=== PATIENT | male | born 1965 | race Caucasian/White ===

== ENCOUNTER 2023-03-09 08:22 | Outpatient (AMB) | payer BC, SELFPAY ==
--- NOTE | 2023-03-09 08:25 | MHC.OFFVIS ---
Intake Vital Signs 03/09/23 08:27 Height 5 ft 10 in Weight 237 lb BMI 34.0 BP 122/84 Blood Pressure Location Rt brachial Position Sitting Pulse 91 Pulse Source Pulse Oximeter Pulse Oximetry (%) 97 Oxygen Delivery Method Room Air Intake Visit Reasons: ENP-F/u on CPAP 90 day requirement per Ins-Conf Intake Note: Patient presents for follow up. Allergies Penicillins Allergy (Unknown, Verified 03/09/23 08:30) Unknown Sulfa (Sulfonamide Antibiotics) Allergy (Unknown, Verified 03/09/23 08:30) Unknown HPI HPI Comments History of Present Illness Details 57 y/o male patient presents for new in-person visit to manage sleep apnea. Pt reports he had a home sleep study in Dec, 2022 and was diagnosed with NAVEED. The home sleep study result was significant for a mild degree of sleep apnea. The AHI was 7/hr and oxygen pam was 85%. Pt started APAP at [id number]. The CPAP compliance and therapy response (02/07/23-03/08/23) reviewed. The usage days 77% and the average usage hours 7 hrs. The max pressure was 15.2 and the residual AHI was 0.9/hr. Pt's home care company is [facility]. Pt states that he changed the mask size to extra large and it is much comfortable, and his skin on nose bridge is healing. He can have rested sleep, no frequent wakes up, less urination at night and feels much refreshed in the morning. His sleep quality has improved a lot, he can sleep 7 hrs average. Daytime sleepiness has resolved, does not need take afternoon nap anymore. [facility] Family History (Updated 03/09/23 @ 08:32 by GLENN Mueller) Father Heart disease COPD (chronic obstructive pulmonary disease) Diabetes Brother Diabetes Social History (Updated 03/09/23 @ 08:32 by GLENN Mueller) Alcohol intake: never Patient Tobacco Use Status: Never used Tobacco Review of Systems Const All systems reviewed & are unremarkable except as noted in HPI and below Physical Exam Vital Signs: Last Vital Signs Pulse 91 03/09/23 08:27 BP 122/84 03/09/23 08:27 Pulse Ox 97 03/09/23 08:27 Oxygen Delivery Method Room Air 03/09/23 08:27 BMI result Body Mass Index 34.0 Const General: cooperative Nutritional Appearance: obese Orientation/consciousness: patient oriented x3 Neck Neck: Yes full ROM and Yes supple Resp Effort & Inspection: normal respiratory effort and able to speak in complete sentences Neuro General: patient oriented x3, gait normal and moves all extremities Cranial nerves: Yes CN's II-XII intact bilaterally Cognition (Neuro): normal cognition Gait exam (Neuro): Normal gait present Motor exam (neuro): 5/5 motor strength present throughout, Pronator motor function not present and no tremor noted Psych Appearance: grossly normal Mental Status: mental status grossly normal Speech and movement: Normal speech and movement present Affect: normal affect Attitude: cooperative Assessment & Plan Assessment & Plan (1) NAVEED on CPAP: Code(s): G47.33 - Obstructive sleep apnea (adult) (pediatric) Plan Continue to use APAP [id number] as patient experiences good clinical effects, improved sleep quality and daytime sleepiness has resolved. Stressed compliance, use CPAP nightly and more than 4 hrs. Continue to practice good sleep hygiene and wt reduction advised. Coding Level of Care Code New Pt Level 3 (26314) Diagnoses NAVEED on CPAP G47.33
[2023-03-09 08:27] VITALS: BP 122/84; PULSE 91; O2SAT 97; BMI 34.0
== END 2023-03-09 08:53 | disposition home or self-care (01) ==
PROVIDERS: PCP Internal Medicine; Visit Provider Nurse Practitioner Family
DX: G47.33 Obstructive sleep apnea (adult) (pediatric) (principal)
CPT/HCPCS: 99203

== ENCOUNTER → 2023-03-09 08:22 | Outpatient (BNVA) | payer BC, SELFPAY | PROVIDERS: PCP Internal Medicine; Visit Provider Nurse Practitioner Family ==

== ENCOUNTER 2024-03-09 08:45 | Outpatient (AMB) | payer BC, SELFPAY ==
--- OUTSIDE RECORDS SUMMARY | 2024-03-09 08:50 | XMS_ITS | Continuity of Care Document ---
Author Organization [facility] Address [address] [place] [address] [facility] Name Relationship Address Phone SUKHI GARCIA spouse Unknown Unavailable DEITER, YANI spouse Unknown Unavailable SUKHI CLEMENTS domestic partner Unknown Unavailabl e DEITER, RAJWINDERA Personal Relationship Unknown Crystal vailable DEITER, RAUL Personal Relationship Unknown Unava ilable Care Team Providers Care Isobutylene Operator Chief Name Role Phone Smith Crowder MD Primary Care Physician [phone] Encounter [facility] Date(s): 02/02/24 - 03/03/24 [facility] [address] [place] [address] Encounter Type: Triage Allergies, Adverse Reactions, Alerts Substance Criticality Severity Reaction Reaction Severity Status penicillin Active sulfa drugs Active Immunizations Given and Recorded Vaccine Date Status Refusal Reason tetanus/diphtheria/pertussis, acel(Tdap) 1 09/09/23 Given tetanus/diphtheria/pertussis, acel(Tdap) 2 01/21/12 Given SARS-CoV-2 (COVID-19) mRNA-1273 vaccine 08/21/21 R ecorded SARS-CoV-2 (COVID-19) mRNA BNT-162b2 vac 04/08/21 Recorded SARS-CoV-2 (COVID-19) mRNA BNT-162b2 vac 10/09/20 Recorded SARS-CoV-2 (COVID-19) mRNA BNT-162b2 vac 09/18/20 Recorded tetanus-diphtheria toxoids (Td) 11/10/18 Given pneumococcal 23-valent vaccine 06/28/16 Given influenza virus vaccine, inactivated 3 01/08/13 Gi daija FluLaval (oldterm) 02/10/11 Given 1Result Comment: [facility]:[id number] 2Admin Note: Boostrix 3Result Comment: [01/23/2013[place] Medic[place] CPAP Machine See Instructions, # 1 each, Refills 0, Tot. Refills 0, Maintenance, AutoCPAP 7- 20 cm H20, use Dailywhen sleeping DX: G47.33 NAVEED, 02/02/23 4:24:00 PM EST, Supply Start Date: 02/02/23 Status: Ordered Quantity: 1.0 Unit: each Repeat number: 1 CPAP Equipment See Instructions, # 1 each, Refills 11, Tot. Refills 11, Maintenance, Mask , Filters, Water Chamber, Tubing , Head/ Chin Strap , Heated Humidifer DX: G47.33 NAVEED, 02/02/23 4:25:00 PM EST, Supply Start Date: 02/02/23 Status: Ordered Quantity: 1.0 Unit: each Repeat number: 12 sildenafil 100 mg oral tablet 1 tablet, By Mouth, Daily, PRN NEEDED FOR ERECTILE DYSFUNCTION, TABLET CAN BE SPLIT IN HALF, TAKE 1 HOUR BEFORE SEXUAL ACTIVITY., # 5 tablet, 5 Refills, Maintenance, 12/07/23 2:39:00 PM EDT, [facility], 177.5, cm, 09/09/23 7:59:00 EDT, Height Start Date: 12/07/23 Status: Ordered Quantity: 5.0 Unit: tablet Repeat number: 1 Ventolin HFA 108 mcg/inh inhalation aerosol with adapter 2 puffs, Inhalation, Every 4 hours, NAME BRAND ONLY, # 1 each, 11 Refills, Maintenance, 09/01/22 8:00:00 AM EDT, [facility], 177.5, cm, 09/01/22 7:54:00 EDT, Height Start Date: 09/01/22 Stop Date: 08/27/23 Status: Ordered Quantity: 1.0 Unit: each Repeat number: 12 Problem List Condition Confirmation Course Effective Dates Status H ealth Status Informant Allergic rhinitis Confirmed Active COVID-19 virus infection (May 2020 and s/p monoclonal Ab) Confirmed Active FH: Diabetes mellitus Confirmed Active Asthma, intermittent 1 Confirmed Active Obese class I Confirmed Active Tubulovillous adenoma of colon Confirmed 2014 Active Serrated polyp of colon 2 Confirmed 11/20/17 Active Tubular adenoma of colon Confirmed 2014 Active 1mild intermittent 2Repeat colonoscopy in 2020 Social History Social History Type Response Smoking Status Never smoker entered on: 06/23/15 Sex Sex Representation Male (finding) Patient Care team information Care Team Personnel Name: Srinivas Gandhi RN Position: [facility] RN Member Role: Primary Care Nurse Name: Smith Crowder MD Position: [facility] Physician - Primary Care Member Role: PCP Address: [address] [place] [address]- Telecom: Care Team Related Persons Name: SUKHI GARCIA Insurance Providers Guarantor name: JESSICA GARCIA Health Plan Information #: 1 Payer: [employer] Member Number: NA Policy Number: NA Group Number: NA
--- OUTSIDE RECORDS SUMMARY | 2024-03-09 08:50 | XMS_ITS | Continuity of Care Document ---
Author Organization [facility] Address [address] [place] [address]- Care Team Providers Care Microchip Specialist Name Role Phone Smith Crowder MD Primary Care Physician [phone] Encounter [facility] Date(s): 02/14/24 - 02/14/[address] [id number] Discharge Disposition: A-D/C Home Attending Physician: Juice Raya MD Admitting Physician: Juice Raya MD Referring Physician: Juice Raya MD Encounter Type: Disch Daystay Allergies, Adverse Reactions, Alerts Substance Criticality Severity [...] daija FluLaval (oldterm) 02/10/11 Given 1Result Comment: [facility]:[id number] 2Admin Note: Boostrix 3Result Comment: [01/23/2013] administerd @ [facility] [place], [place] Medications CPAP Machine See Instructions, # [...] Active 1mild intermittent 2Repeat colonoscopy in 2020 Vital Signs Most recent to oldest [Reference Range]: 1 2 3 Height 178 cm (02/14/24 9:47 AM) Weight 102.5 kg (02/14/24 9:47 AM) Oxygen Saturation [94-100 %] 97 % (02/14/24 12:21 PM) 96 % (02/14/24 12:13 PM) 96 % (02/14/24 11:55 AM) Pulse Rate [55-90 bpm] 74 bpm (02/14/24 11:55 AM) 74 bpm (02/14/24 9:47 AM) Body Mass Index [18.5-24.99 kg/m2] 32.35 kg/m2 *>HHI* (02/14/24 9:47 AM) Blood Pressure [90-138/55-84 mm Hg] 114/72mm Hg (02/14/24 12:22 PM) 101/71mm Hg (02/14/24 12:12 PM) 111/99mm Hg (02/14/24 11:55 AM) Respiratory Rate [16-30 br/min] 20 br/min (02/14/24 12:21 PM) 14 br/min *L* (02/14/24 12:13 PM) 19 br/min (02/14/24 11:55 AM) Temperature [96.8-100.4 DegF] 98.0 DegF (02/14/24 9:47 AM) Mode of Delivery (Oxygen) Room air (02/14/24 11:55 AM) Room air (02/14/24 9:47 AM) Blood pressure sites Arm, left (02/14/24 11:55 AM) Arm, left (02/14/24 9:47 AM) Temperature Route Temporal (02/14/24 9:47 AM) Dry Weight 102.5 kg (02/14/24 9:47 AM) Weight Obtained Via Standing scale (02/14/24 9:47 AM) Dry Weight Obtained Via Standing scale (02/14/24 9:47 AM) Social History Social History Type Response Smoking Status Never smoker entered on: 06/23/15 Sex Sex Representation Male (finding) Patient Care team information Care Team Personnel Name: Srinivas Gandhi RN Position: [facility] RN Member Role: Primary Care Nurse Name: Smith Crowder MD Position: [facility] Physician - Primary Care Member Role: PCP Address: [address] [place] [id number] Telecom: Care Team Related Persons Name: SUKHI GARCIA Insurance Providers Guarantor name: JESSICA GARCIA Health Plan Information #: 1 Payer: [employer] Member Number: [id number] Policy Number: NA Group Number: [id number] Health Plan Information #: 2 Payer: [employer] Member Number: [id number] Policy Number: NA Group Number: NA
--- OUTSIDE RECORDS SUMMARY | 2024-03-09 08:50 | XMS_ITS | Continuity of Care Document ---
Author Organization [facility] Address [address] [place] [address]- Care Team Providers Care Hose Stripper Name Role Phone Vel BETANCUR, Smith Primary Care Physician [place] [facility] Date(s): 01/18/24 - 02/17/24 [facility] [address], [place] [address] Encounter Type: Triage Allergies, Adverse Reactions, Alerts [...] daija FluLaval (oldterm) 02/10/11 Given 1Result Comment: [facility]:[id number] 2Admin Note: Boostrix 3Result Comment: [01/23/2013] [place] Medications CPAP Machine See Instructions, # [...] Team Personnel Name: Srinivas Gandhi RN Position: [facility] RN Member Role: Primary Care Nurse Name: Smith Crowder MD Position: [facility] Physician - Primary Care Member Role: PCP Address: [address] [place] [address] Telecom: Care Team Related Persons Name: SUKHI GARCIA Insurance Providers Guarantor name: JESSICA GARCIA Health Plan Information #: 1 Payer: [employer] Member Number: NA Policy Number: NA Group Number: NA
[2024-03-09 08:59] VITALS: BP 116/82; PULSE 74; O2SAT 97; BMI 33.6
--- NOTE | 2024-03-09 08:59 | MHC.OFFVIS ---
Vital Signs 03/09/24 08:59 Height 5 ft 10 in Weight 234 lb 8 oz BMI 33.6 BP 116/82 Blood Pressure Location Lt brachial Position Sitting Pulse 74 Pulse Source Pulse Oximeter Pulse Oximetry (%) 97 Oxygen Delivery Method Room Air Intake Visit Reasons: 1 yr f/u NAVEED Intake Note: Few occasion were he woke up and felt like he was not breathing. HE was wearing his CPAP when encounter occurred. Tobacco Wrapping Machine Tender Required: No Accompanied by: Self / Same As Patient Allergies Penicillins Allergy (Unknown, Verified 03/09/24 09:10) Unknown Sulfa (Sulfonamide Antibiotics) Allergy (Unknown, Verified 03/09/24 09:10) Unknown Medication List - Last Reconciled 03/11/24 by JONA Jaeger No Known Home Meds Do you need a note to return to daycare/school/sports/work: No HPI Comments Details: 58 y/o male patient presents for f/u of mild NAVEED w/ Dec 2022 HST showing AHI was 7/hr and oxygen pam was 85% w/ SPO2 < 88% x's 2 min. Since his last visit here, pt reports he was using his APAP pretty consistently, with good effect. However in December he had 2 nights (not sure which specific dates, but a Tuesday and then the following Tuesday) where he woke up with a sensation that he was not breathing. He states he was consciously trying to make himself breathe and when he sat up, he could breathe. does not recall dreaming, and not a/w headache/chest pain. He states it felt like the episode lasted forever , however likely it was just 5-10 seconds. Review of his December 2023 PAP complaince report di not show any episodes of marked increased residual AHIs or episodes of central sleep apnea. He denies alcohol/marijuana intake before these episodes- does not use alcohol or marijuana or illicit drugs. He did try to see if there was something different in his day/evening prior to these episodes, but cannot think of anything. He denies h/o sleep paralysis. Has a slight case of asthma - has not needed his inhalers in > 1 yr. No usual chest pain, or SOB on exertion, leg swelling. Generally breathes better when he sleeps on his side. Since the above incident, he has not been using his CPAP as well, was a bit anxious about sleeping, however has started using his device again. He does also wonder if an alternate mask to his nasal mask might be more comfortable. Prior to the HST, his has told him that he stops breathing in his sleep and has loud snoring. [facility] Compliance Report Usage 02/08/2024 - 03/08/2024 Usage days 14/30 days (47%) >= 4 hours 7 days (23%) < 4 hours 7 days (23%) Average usage (days used) 4 hours 43 minutes AirSense 10 AutoSet Serial number [id number] Mode AutoSet Min Pressure 7 cmH2O Max Pressure 20 cmH2O EPR Fulltime EPR level 2 Response Standard Therapy Pressure - cmH2O Median: 10.1 95th percentile: 14.3 Maximum: 15.7 Leaks - L/min Median: 1.6 95th percentile: 10.5 Maximum: 16.0 Events per hour AI: 0.3 HI: 0.1 AHI: 0.4 PFSH Family History Father Heart disease COPD (chronic obstructive pulmonary disease) Diabetes Brother Diabetes Social History Alcohol intake: never Patient Tobacco Use Status: Never used Tobacco Physical Exam Vital Signs: Last Vital Signs Pulse 74 03/09/24 08:59 BP 116/82 03/09/24 08:59 Pulse Ox 97 03/09/24 08:59 Oxygen Delivery Method Room Air 03/09/24 08:59 BMI result Body Mass Index 33.6 Const General: no acute distress Orientation/consciousness: patient oriented x3 Neuro General: patient oriented x3 Psych Mental Status: mental status grossly normal Speech and movement: Clear speech present Attitude: cooperative Assessment & Plan Assessment & Plan (1) NAVEED on CPAP: Code(s): G47.33 - Obstructive sleep apnea (adult) (pediatric) Category: Medical (2) Apnea: Code(s): R06.81 - Apnea, not elsewhere classified Category: Medical (3) Mild obstructive sleep apnea: Code(s): G47.33 - Obstructive sleep apnea (adult) (pediatric) Category: Medical Plan Reviewed results of 2022 home sleep study report, results c/w mild obstructive sleep apnea w/o central sleep apnea or significant nocturnal hypoxemia. Continue APAP 7-20 cmH2O nightly > 4 hours, as pt does have overall good clinical effect from use. However, adjusted EPR from 2 to 3 via orat.io portal- in hopes this reduces risk for recurrence of waking up w/ sensation of apnea. Will also request new mask fitting. Orders for above written today. If pt has recurrence of waking w/ apnea, consider f/u in-lab PSG and/or pulmonary consult. Clean CPAP machine and supplies routinely. Change CPAP supplies routinely. Use distilled water in PAP water reservoir. Pt to contact us or respiratory company with any questions or concerns. Pt to follow-up in 6 months or sooner prn. Coding Level of Care Code Est Pt Level 3 (28840) Diagnoses NAVEED on CPAP G47.33 Apnea R06.81 Mild obstructive sleep apnea G47.33
== END 2024-03-09 10:04 | disposition home or self-care (01) ==
PROVIDERS: Absent Provider Physician Assistant Medical; PCP Internal Medicine; Visit Provider Nurse Practitioner Family
DX: G47.33 Obstructive sleep apnea (adult) (pediatric) (principal)
CPT/HCPCS: 99213

== ENCOUNTER 2024-09-04 08:18 | Outpatient (AMB) | payer BC, SELFPAY ==
--- OUTSIDE RECORDS SUMMARY | 2024-09-04 08:29 | XMS_ITS | Clinical Summary ---
Author Organization [facility] [employer] [facility] Address [address] [place] [address] Care Team Providers Care Lang Interpreter Name Role Phone Pcp, No Primary Care Provider [phone] Social History Tobacco Use Types Packs/Day Years Used Date Smoking Tobacco: Never Assessed Sex and Gender Information Value Date Recorded Sex Assigned at Not on file Legal Sex Male 10:35 AM EDT Gender Identity Not on file Sexual Orientation Not on file Plan of Treatment Health Maintenance Due Date Last Done Comments Colorectal Cancer: COLONOSCO PY Screening every 10 yrs (or Modifier) 1964 Depression: Screening Annual ly using PHQ-2/9 in Adults 18 yrs or above (or HM Modifier)([facility]) 1982 Hepatitis C Virus Infection in Adolescents and Adults: Screening (or Modifier) ([facility]) 1982 [facility] Screening Reminder: Dennise christie for all adults ([facility]) 1982 Tobacco Smoking Cessation: i n Adults excluding Women: Behavioral and Pharmacotherapy Interventions ([facility]) 1982 DTaP/Tdap/Td Vaccines ([facility]) (1 - Tdap) 06/09/1983 Colorectal Cancer Screening 45 -75 Yrs (or HM Modifier ) 2009 Colorectal Cancer: FLEXIBLE SIGMOIDOSCOPY Screening every 5 yrs 2009 Colorectal Cancer: Fecal Imm unochemical Test (FIT) Annually [facility] 2009 Colorectal Cancer: High-sens itivity gFOBT Screening Annually [facility] 2009 Colorectal Cancer: Stool Col oguard Screening every 3 yrs 2009 Colorectal Cancer:CT Colonography Screening every 5 yr s 2009 Pneumococcal Vaccination Scr eening: Patients 50+ yrs of age ([facility]) (1 of 1 - PCV) 2014 Zoster/Shingles Vaccine Seri es Screening: Adults aged 18+ yrs (or HM Modifiers)([facility]) (1 of 2) 2014 COVID-19 Vaccine Screening: Initial Series and Booster Status ([facility]) ( - 2023-25 season) 2023 Flu Vaccination: Yearly for ages 18mos through 64 years (or Modifier)([facility]) 10/26/2024 RSV Vaccines (1 - 1-dose 75+ series) 06/09/2039 Medical Devices Not on file Insurance [facility] [employer] Care Teams Lang Interpreter Relationship Specialty Start Date End Date Pcp, Mavis PCP - General Family Medicine 06/20/20
[2024-09-04 08:30] VITALS: BP 140/92; PULSE 83; O2SAT 97; BMI 34.4
--- NOTE | 2024-09-04 08:30 | MHC.OFFVIS ---
Vital Signs 09/04/24 08:30 Height 5 ft 10 in Weight 240 lb BMI 34.4 BP 140/92 H Blood Pressure Location Rt brachial Position Sitting Pulse 83 Pulse Source Pulse Oximeter Pulse Oximetry (%) 97 Oxygen Delivery Method Room Air Intake Visit Reasons: Follow Up 6mo Associate Professor Of History Required: No Accompanied by: Self / Same As Patient Allergies Penicillins Allergy (Unknown, Verified 09/04/24 08:42) Unknown Sulfa (Sulfonamide Antibiotics) Allergy (Unknown, Verified 09/04/24 08:42) Unknown HPI Comments Details: 58 y/o male patient presents for f/u of mild NAVEED / Dec 2022 HST showing AHI was 7/hr and oxygen pam was 85% w/ SPO2 < 88% x's 2 min. Patient denies any significant interval medical history changes Since his last visit here, pt's APAP settings were changed from APAP 7-20 with EPR 2 to APAP 720 with EPR 3, and had a mask fitting with [facility], and is now using nasal pillows, which he is tolerating much better. The new mask straps are more comfortable, and more easy to clean. He now states that he loves his CPAP, and is sleeping better with the. He feels overall better, has more daytime energy. He also attributes this to making some dietary changes with his , now eating more began style diet. Not very physically active- however is open to increasing regular physical activity. He has regularly cleaning and changing his CPAP supplies. He wonders about using a UV light CPAP apparatus cleaner. He reports he always uses distilled water in his CPAP water reservoir Prior to the HST, his has told him that he stops breathing in his sleep and has loud snoring. [facility] Compliance Report Usage 05/30/2024 - 08/27/2024 Usage days 100% Usage greater than 4 hours 91% Average usage on days used 7 hours and 4 minutes AirSense 10 AutoSet Serial number [id number] APAP 7-20 cm H2O with EPR 3 Maximum pressure 10.5 cm H2O Median leaks 0 L/min Residual AHI 1 per hour PFSH Family History Father Heart disease COPD (chronic obstructive pulmonary disease) Diabetes Brother Diabetes Social History Alcohol intake: never Patient Tobacco Use Status: Never used Tobacco Physical Exam Vital Signs: Last Vital Signs Pulse 83 09/04/24 08:30 BP 140/92 H 09/04/24 08:30 Pulse Ox 97 09/04/24 08:30 Oxygen Delivery Method Room Air 09/04/24 08:30 BMI result Body Mass Index 34.4 Const General: no acute distress Orientation/consciousness: patient oriented x3 Neuro General: patient oriented x3 Psych Mental Status: mental status grossly normal Speech and movement: Clear speech present Attitude: cooperative Assessment & Plan Assessment & Plan (1) NAVEED on CPAP: Code(s): G47.33 - Obstructive sleep apnea (adult) (pediatric) Category: Medical (2) Apnea: Code(s): R06.81 - Apnea, not elsewhere classified Category: Medical (3) Mild obstructive sleep apnea: Code(s): G47.33 - Obstructive sleep apnea (adult) (pediatric) Category: Medical Plan Continue APAP 7-20 cmH2O with EPR 3 nightly > 4 hours, as patient has had good clinical effect from use. Clean CPAP machine and supplies routinely. Change CPAP supplies routinely. Use distilled water in PAP water reservoir. Pt to contact us or respiratory company with any questions or concerns. Pt to follow-up in 12 months or sooner prn. Coding Level of Care Code Est Pt Level 3 (33770) Diagnoses NAVEED on CPAP G47.33 Apnea R06.81 Mild obstructive sleep apnea G47.33
== END 2024-09-04 09:21 | disposition home or self-care (01) ==
LOC: HO.HSMS 08:19
PROVIDERS: PCP Internal Medicine; Visit Provider Nurse Practitioner Family
DX: G47.33 Obstructive sleep apnea (adult) (pediatric) (principal)
CPT/HCPCS: 99213